=== PATIENT | female | born 2000 | race African-American/Black ===

== ENCOUNTER 2018-11-08 23:50 | Emergency (ER) | payer OTHER ==
[~2018-11-08] VITALS: Ht 157.5 cm; Wt 59.1 kg
[2018-11-08 23:51] VITALS: BP 133/80
[2018-11-09] MEDS ORDERED: IBUPROFEN 600 MG TAB PO ONE (00:15)
== END 2018-11-09 00:33 | disposition home or self-care (01) ==
LOC: M ED 11-09 00:27
DX: R07.0 Pain in throat (principal)

== ENCOUNTER 2019-07-24 12:57 | Emergency (ER) | payer OTHER ==
[~2019-07-24] VITALS: Ht 157.5 cm; Wt 59.1 kg
[2019-07-24 13:43] LABS: BASO # 0.1 10^3/uL (0.0-0.2); BASO % 1.1 % (0.0-1.0); EOS # 0.3 10^3/uL (0.0-0.5); EOS % 6.2 % (0.0-3.0); HEMOGLOBIN 14.6 g/dl (12.0-15.5); LYMPH # 1.9 10^3/uL (1.5-5.0); LYMPH % 35.3 % (24.0-44.0); MEAN CORPUSCULAR HEMOGLOBIN 34.9 pg (27.0-33.0); MEAN CORPUSCULAR VOLUME 102.9 fl (80.0-96.0); MONO # 0.5 10^3/uL (0.0-0.8); MONO % 8.6 % (0.0-5.0); NEUTROPHILS # 2.6 10^3/uL (1.5-8.5); NEUTROPHILS % 48.6 % (36.0-66.0); PLATELET COUNT, AUTOMATED 337 10^3/uL (150-450); RED BLOOD COUNT 4.18 10^6/uL (4.00-5.40); WHITE BLOOD COUNT 5.3 10^3/uL (4.0-10.0)
[2019-07-24 14:08] LABS: BLOOD UREA NITROGEN 13 MG/DL (7-18); CALCIUM LEVEL 9.5 MG/DL (8.5-10.1); CARBON DIOXIDE LEVEL 29 MEQ/L (21-32); CHLORIDE LEVEL 105 MEQ/L (98-107); CREATININE FOR GFR 0.81 MG/DL (0.55-1.30); GLOMERULAR FILTRATION RATE > 60.0 (>60); GLUCOSE, FASTING 65 MG/DL (70-100); POTASSIUM SERUM 3.9 MEQ/L (3.5-5.1); SODIUM LEVEL 140 MEQ/L (136-145)
[2019-07-24] MEDS ORDERED: NAPR-837 PO (15:05)
[2019-07-24 15:12] VITALS: BP 120/58
--- NOTE | 2019-07-24 15:21 | REP ---
Pelvic ultrasound including transabdominal, endovaginal and Doppler ultrasound assessment: The uterus is anteverted and normal size measuring 7.8 x 3.7 x 4.3 cm. The endometrium is not thickened measuring 4.9 mm. Right ovary: The right ovary is normal size measuring 3.3 x 1.4 x 2.2 cm. There is no dominant mass or cyst. There is vascular flow with the Doppler resistive index of the parenchymal arteries measuring 0.61. Left ovary: The left ovary is normal size measuring 3.4 x 2.2 x 2.4 cm. There is no dominant mass or cyst. There is vascular flow with the Doppler resistive index in the parenchymal arteries measuring 0.65. There is no free fluid in the pelvis. Impression: Essentially negative pelvic ultrasound. Electronically Signed by Hai Hedrick MD 07/24/2019 03:13 P
== END 2019-07-24 15:26 | disposition home or self-care (01) ==
LOC: M ED 12:57
DX: N92.6 Irregular menstruation, unspecified (principal); R10.2 Pelvic and perineal pain

== ENCOUNTER 2020-08-29 12:22 | Emergency (ER) | payer OTHER ==
[~2020-08-29] VITALS: Ht 157.5 cm; Wt 61.0 kg
[~2020-08-29 12:22] MED LIST: NAPR-837 PO
[2020-08-29] MEDS ORDERED: ACETAMINOPHEN TAB 650MG DOSE (2X325MG) PO ONE (13:00)
--- NOTE | 2020-08-29 13:14 | REP ---
INDICATION: trauma. COMPARISON: None. TECHNIQUE: Two views FINDINGS: The lung pacheco are well inflated and without infiltrate, effusion, atelectasis or masses no pneumothorax or pneumomediastinum. The aorta and airway are intact. No cardiomegaly, vascular redistribution or edema. Bony thorax shows no focal lesion or compression deformity in the spine. The visualized sternum, ribs, clavicles and shoulders are unremarkable. No free air under the diaphragm. IMPRESSION: 1. Negative chest for any acute finding. <Electronically signed by Sixto Stack > 08/29/20 [id number]
--- NOTE | 2020-08-29 13:17 | REP ---
INDICATION: trauma. COMPARISON: Chest x-ray today TECHNIQUE: Three views FINDINGS: There is a mild levoconvex curve lower thoracic spine centered at T9-10. The pedicles, spinous and transverse processes are normal. The posterior rib articulations and medial clavicles were unremarkable. The upper lumbar vertebral levels and posterior elements are intact. The lateral view in swimmer's projection show cervical, thoracic and lumbar vertebral bodies included in the field of view to be without compression deformity or malalignment. There is no focal bone lesion. IMPRESSION: Negative thoracic spine for any acute bony abnormality, compression fracture or malalignment. Mild levoconvex curve lower thoracic spine. <Electronically signed by Sixto Stack > 08/29/20 [id number]
[2020-08-29 14:18] VITALS: BP 121/68
== END 2020-08-29 14:26 | disposition home or self-care (01) ==
LOC: M ED 12:22
DX: S20.229A Contusion of unspecified back wall of thorax, initial encounter (principal); W17.89XA Other fall from one level to another, initial encounter; Y92.9 Unspecified place or not applicable; Y99.1 Military activity